=== PATIENT | male | born 1960 | race Caucasian/White ===

== ENCOUNTER 2019-02-17 04:40 | Emergency (ER) | payer OTHER, SELFPAY ==
[2019-02-17 04:41] VITALS: BP 182/92; PULSE 80; RESP 16; TEMP 36.6; O2SAT 98; BMI 28.6
--- NOTE | 2019-02-17 04:41 | ED.RN ---
no old ekgs in [facility]
--- NOTE | 2019-02-17 05:02 | EKG12_ITS ---
Test Reason : CP Blood Pressure : / mmHG Vent. Rate : 081 BPM Atrial Rate : 081 BPM P-R Int : 186 ms QRS Dur : 086 ms QT Int : 374 ms P-R-T Axes : 064 041 064 degrees QTc Int : 434 ms Normal sinus rhythm Normal ECG Confirmed by KRISTINA WILSON, MARIA L ([id number]), development editor JIGAR DE ([id number]) on 02/23/2019 1:07:23 PM Referred By: CAROL Confirmed By:MARIA L ACEVEDO MD
--- NOTE | 2019-02-17 05:03 | RAD_ITS ---
STUDY: X-RAY CHEST REASON FOR EXAM: Male, 58 years old. Chest pain TECHNIQUE: PA and lateral views of the chest. COMPARISON: None. FINDINGS: There are superimposed monitor leads. There is hyperinflation of the lungs consistent with chronic obstructive lung disease (COPD). Calcified granuloma in the right base. There is no demonstrated pleural abnormality. Normal size heart. Normal mediastinum and gordon. Normal visualized pulmonary arteries. Normal visualized aortic arch and descending thoracic aorta. There is demineralization of the osseous structures. Normal visualized ribs, clavicles, and shoulders. There is no demonstrated abnormality of the visualized soft tissue structures of the upper abdomen. RAD/Chest PA and Lateral IMPRESSION: COPD, probable remote granulomatous exposure, osteopenia. No pulmonary edema, congestive heart failure or confluent pneumonia. Electronically Signed: Shannon Guillen MD at 6:05 EDT , Service support ,
--- NOTE | 2019-02-17 05:03 | ED.VIS.GEN ---
History of Present Illness Chief Complaint: Chest Pain Informant: Patient Narrative: Stated over the last 3 days he has had continuous chest aching substernal. It waxes and wanes. Is not movement related. It seems to be better in the morning when he wakes up in the slowly progresses throughout the day. No home treatment for it. No history of coronary artery disease. No previous stress test or heart cath. Cardiac risk factors include a remote history of smoking. He no longer does this over the last 10 years but he smoked for 30 years. History of hypertension high cholesterol. No family history of early coronary artery disease. No PE risk factors other than he does drive a truck for living. He is never had any leg pain or swelling per patient. Patient came in tonight at the urge of his friend to get checked out. Current severity is resolved. He has no discomfort currently. He did have discomfort this morning when he woke up that persisted from the previous day. He stated he had a normal physical exam 2 weeks ago. Past Medical History - Allergies and Home Meds Allergies/Adverse Reactions: Allergies No Known Allergies Allergy (Verified 02/17/19 04:41) Primary Care Physician: [facility] Doctor,Out of [NON-STAFF] - Prior records reviewed: Yes Past Medical History: - - Cholesterol, hypertension Surgical History: no surgical history Smoking Status: Former smoker Alcohol: Occasional Drugs: None Review of Systems General: Denies: Chills, Fever, Sweats Eyes: Denies: Visual changes - bilaterally, Diplopia ENT: Denies: Rhinorrhea, Sore throat Cardiovascular: Reports: Chest pain. Denies: Palpitations Respiratory: Denies: Dyspnea, Cough, Dyspnea on exertion Gastrointestinal: Denies: Abdominal pain, Nausea, Vomiting, Diarrhea, Melena, Hematochezia Genitourinary: Denies: Dysuria, Hematuria, Frequency Musculoskeletal: Denies: Back pain, Extremity Pain Skin: Denies: Rash, Wounds Neurological: Denies: Headache, Weakness, Numbness Physical Exam Vital Signs/Narrative: Vital Signs Temp Pulse Resp BP Pulse Ox 02/17/19 04:41 97.9 F 80 16 182/92 H 98 General: Well nourished, Well developed, No Acute Distress Head: Normocephalic, Atraumatic Eyes: Perrl, EOMI ENT: Moist mucous membranes, No rhinorrhea Neck: Supple, Nontender Cardiovascular: Regular rate, Regular rhythm, No murmurs Respiratory: No distress, CTA bilaterally, Chest nontender Abdomen: Soft, Nontender, Nondistended, Normal bowel sounds Back: Nontender, Normal Inspection Extremities: Nontender, No edema Skin: Normal color, No rash Neurological: Alert, Oriented x3, Cranial nerves II-XII grossly intact, Normal Strength, Normal Sensation Psychological: Normal affect, Normal Mood Diagnostic/Tx/Re-eval - Medical Decision Making EKG obtained shows normal sinus rhythm at a rate 81. No ischemic findings. Patient given a dose of aspirin orally. Lab work chest x-ray obtained. X-ray shows COPD findings with no acute disease lab work unremarkable. Troponin is negative. CBC shows no major acute abnormalities. Electrolyte panel shows no major abnormalities. only slight abnormalities noted. Patient remains comfortable here. I do not think this is cardiac related. His heart score is low risk in a number of 3. I do not feel he needs to be admitted. I feel he can follow-up as an outpatient. This could be costochondritis. No evidence of pneumothorax. I do not think he has a PE or dissection. I feel he can follow-up as an outpatient continue to take anti-inflammatories.. ED Disposition - Plan for ED Patient: Disposition: Home or Assisted Living Diagnosis: Chest pain at rest Instructions: CHEST PAIN, NonCardiac Referrals: [facility],Out of [NON-STAFF] -
[2019-02-17 05:11] LABS: Absolute Lymphocyte Count 1.38 X10^3/uL (0.83-4.51); Absolute Neutrophil Count 2.8 X10^3/uL (2.0-7.7); Basophil# 0.03 X10^3/uL; Basophil% 0.6 % (0-1); Eosinophil# 0.37 X10^3/uL; Eosinophils% 7.2 % (0-5); Hematocrit 43.3 % (40-54); Hemoglobin 14.6 g/dL (13.0-16.5); Lymphocyte # 1.38 X10^3/ul (4.0); Lymphocyte % 26.7 % (19-41); Mean Corp Hgb Conc 33.7 g/dL (32-36); Mean Corpuscular Hgb 30.5 pg (27.0-32.0); Mean Corpuscular Volume 90.4 fL (80-94); Mean Platelet Vol. 9.7 fl (6.2-12.0); Monocyte# 0.59 X10^3/uL; Monocyte% 11.4 % (0-10); NRBC Flagged by Analyzer 0 % (0-5); Neutrophil # 2.79 X10^3/uL (2.7-7.7); Neutrophil % 53.9 % (47-70); Platelet Count 245 K/mm3 (150-450); RBC Distribution Width CV 13.2 % (11.6-14.6); RBC Distribution Width SD 44.3 fl (35.1-43.9); Red Blood Count 4.79 M/mm3 (4.6-6.2); White Blood Count 5.2 K/mm3 (4.4-11.0)
[2019-02-17] MEDS: Aspirin 81 MG TAB.CHEW 324 MG PO (05:13)
[2019-02-17 05:37] LABS: Anion Gap 4 (5-15); BUN 20 mg/dL (7-18); Calcium,Total 8.7 mg/dL (8.5-10.1); Chloride 110 mmol/L (98-107); Creatinine, Serum 1.25 mg/dL (0.70-1.30); EST Glomerular Filtration Rate 63 mL/min (>60); Est Glom Filt Rate - Afr Amer 76 mL/min (>60); Estimated Creatinine Clearance 64.42 ml/min; Glucose 110 mg/dL (74-106); Potassium 4.2 mmol/L (3.5-5.1); Sodium Level 143 mmol/L (136-145)
[2019-02-17 05:40] VITALS: BP 149/95; PULSE 56; RESP 12; O2SAT 97
[2019-02-17 06:16] VITALS: BP 149/95; PULSE 62; RESP 12; O2SAT 99
== END 2019-02-17 06:17 | disposition home or self-care (01) ==
PROVIDERS: Emergency Provider Emergency Medicine; Family Provider Internal Medicine; PCP Internal Medicine
DX: R07.9 Chest pain, unspecified (principal); E78.00 Pure hypercholesterolemia, unspecified; I10 Essential (primary) hypertension; Z87.891 Personal history of nicotine dependence; Z79.899 Other long term (current) drug therapy
CPT/HCPCS: 71046; 80048; 84484; 85025; 93005; 99285; A4216

== ENCOUNTER 2020-12-20 16:57 | Observation (INO) | payer BC, SELFPAY ==
[2020-12-20 16:58] VITALS: BP 121/91; PULSE 113; RESP 14; TEMP 36.4; O2SAT 95; BMI 27.8
[2020-12-20 18:03] LABS: Absolute Lymphocyte Count 1.15 X10^3/uL (0.83-4.51); Absolute Neutrophil Count 7.3 X10^3/uL (2.0-7.7); Anion Gap 7 (5-15); BUN 25 mg/dL (7-18); BUN/Creat Ratio 11.5 RATIO (10-20); Basophil# 0.02 X10^3/uL; Basophil% 0.2 % (0-1); Calcium,Total 9.2 mg/dL (8.5-10.1); Chloride 103 mmol/L (98-107); Creatinine, Serum 2.18 mg/dL (0.70-1.30); EST Glomerular Filtration Rate 33 mL/min (>60); Eosinophil# 0.15 X10^3/uL; Eosinophils% 1.5 % (0-5); Est Glom Filt Rate - Afr Amer 40 mL/min (>60); Estimated Creatinine Clearance 37.21 ml/min; Glucose 96 mg/dL (74-106); Hematocrit 42.5 % (40-54); Hemoglobin 13.9 g/dL (13.0-16.5); Lymphocyte # 1.15 X10^3/ul (0.83-4.51); Lymphocyte % 11.6 % (19-41); Mean Corp Hgb Conc 32.7 g/dL (32-36); Mean Corpuscular Hgb 29.6 pg (27.0-32.0); Mean Corpuscular Volume 90.4 fL (80-94); Mean Platelet Vol. 10.1 fl (6.2-12.0); Monocyte# 1.21 X10^3/uL; Monocyte% 12.2 % (0-10); NRBC Flagged by Analyzer 0 % (0-5); Neutrophil # 7.32 X10^3/uL (2.7-7.7); Neutrophil % 74.1 % (47-70); Platelet Count 323 K/mm3 (150-450); Potassium 3.7 mmol/L (3.5-5.1); RBC Distribution Width CV 13.3 % (11.6-14.6); RBC Distribution Width SD 44.2 fl (35.1-43.9); Sodium Level 136 mmol/L (136-145); White Blood Count 9.9 K/mm3 (4.4-11.0)
--- NOTE | 2020-12-20 18:23 | NURSING ---
FAXED RELEASE OF INFO TO [facility] [phone]
[2020-12-20 19:29] LABS: Bacteria 0 SEEN /hpf (None Seen); Mucous, Urine 0 SEEN /hpf (<or=2+); White Blood Cells 0 SEEN /hpf (0-5)
[2020-12-20 19:31] LABS: Color, Urine Yellow (Yellow); Glucose, Dipstick Normal (Normal); Ketone-Dipstick 15 mg/dl (Negative); Leukocyte Esterase-Dipstick Negative /ul (Negative); Nitrite-Dipstick Negative (Negative); Occult Blood-Urine 25 /ul (Negative); Protein-Dipstick Negative (Negative); Specific Gravity, Urine 1.015 (1.002-1.030); Urine Bilirubin Dipstick Negative (Negative); Urine Clarity Sl. Cloudy (Clear); Urine Urobilinogen Normal (Normal)
[2020-12-20 19:50] LABS: Red Blood Cells-Urine 0-5 SEEN /hpf (0-5); Squamous Epithelial Cells - UA 0-5 SEEN /hpf (0-5)
--- NOTE | 2020-12-20 20:17 | CT_ITS ---
STUDY: CT ABDOMEN AND PELVIS WITHOUT CONTRAST REASON FOR EXAM: Male, 60 years old. Kidney Stone RADIATION DOSAGE (If Supplied By Facility): CTDIvol = ( 8.57 ) mGy, DLP = ( 449.48 ) mGycm TECHNIQUE: Transaxial images were obtained from the dome of the diaphragm to the symphysis pubis without oral contrast, and without intravenous contrast. Sagittal and coronal images were reconstructed. Individualized dose optimization techniques were used for this CT. COMPARISON: None. FINDINGS: Calcified granuloma in the right lower lobe. Heart size is normal. 0.9 cm low-attenuation lesion in the dome of the liver, too small to characterize. The liver is otherwise unremarkable. The gallbladder is unremarkable. Spleen and pancreas are unremarkable. The adrenal glands are normal. Normal right kidney. Mild left hydronephrosis. No renal calculi. 4.4 cm low-attenuation lesion in the upper pole not characterized without contrast. 5 x 3 x 5 mm stone in the left proximal ureter. Distal ureter is normal in course and caliber. No additional ureteral stones. The aorta is normal in caliber. There is no free fluid, free air or organized collection. No bowel obstruction or inflammatory change. Normal appendix. Urinary bladder is unremarkable. Normal abdominal wall. Normal osseous structures. CT/Abdomen/Pelvis without Cont IMPRESSION: 1. Stone in the left proximal ureter with mild proximal hydronephrosis. 2. Left renal hypodensity not characterized without contrast. 3. Hepatic hypodensity too small to characterize. Electronically Signed: Aileen Mishra MD at 20:44 EDT Tel , Service support ,
--- NOTE | 2020-12-20 20:18 | EX.ED.DYSGE1 ---
HPI History of Present Illness Chief Complaint: Flank Pain Informant: patient Onset/Context/Timing Onset: Days Context: Sudden Onset Timing: Intermittent Quality: Pain left flank left side of abdomen that started suddenly and is crampy Location: Left side Current Severity: Gone Maximum Severity: Severe Worsened by: Presumed ureteral stone with obstruction Relieved by: P.o. Toradol Associated Symptoms Associated Symptoms: No other symptoms other than pain Narrative Narrative: Patient is a 60-year-old male with history of hypertension hypercholesterolemia who was seen at [facility] emergency department located in [place]. Attempts to obtain prior records were unsuccessful. We were informed at 2014 that there was no one available to retrieve those records. Since patient has evidence of acute elevated augustin of his creatinine and there is concern for obstruction will obtain a CT of the abdomen and pelvis without contrast. Patient was made aware of the delay and reason for repeat CAT scan. Patient denies fever, chills night sweats. He does report nausea when the pain is severe. He denies vomiting. He denies diarrhea. He denies dysuria, frequency, urgency or hematuria. Patient states he was told the stone is 5 mm in size. He believes the stone is located in his kidney. Prior similar symptoms: Yes Recent Illness/Hospitalization: Yes [facility] Medical History High cholesterol Hypertension Home Medications losartan 25 mg PO DAILY 02/17/19 [History Last Taken Unknown] simvastatin 10 mg PO DAILY 02/17/19 [History Last Taken Unknown] Allergy/AdvReac Type Severity Reaction Status Date / Time No Known Allergies Allergy Verified 12/20/20 16:58 Social History (Updated 12/20/20 @ 20:[address] Johnny Rosario MD) household members: family housing: house Smoking Status: Former smoker alcohol intake: current alcohol intake frequency: holidays/special occasions only substance use type: does not use ROS ROS ED Constitutional Constitutional ED: Denies chills, fever(s), subjective or sweats Eyes Eyes: Denies blurry vision, change in vision or diplopia ENT ENT ED: Denies ear pain, rhinorrhea or sore throat Cardiovascular Cardiovascular: Denies chest pain, palpitations or racing heartbeat Respiratory/Chest Respiratory/Chest: Denies cough, dyspnea or dyspnea on exertion Gastrointestinal Gastrointestinal: Reports abdominal pain and nausea; Denies constipation, diarrhea or vomiting Genitourinary Genitourinary ED: Denies dysuria, hematuria or urinary frequency Musculoskeletal Musculoskeletal: Reports back pain; Denies arthralgias, myalgias or neck pain Integumentary Denies Abrasions or rash Endocrine Endocrinology: Denies polydipsia, polyphagia or polyuria EXAM Physical Exam Const Vital Signs: 12/20/20 16:58 Temperature 97.5 F L Temperature Source Temporal Pulse Rate 113 H Respiratory Rate 14 Blood Pressure 121/91 H Blood Pressure Mean 101 Pulse Ox 95 Oxygen Delivery Method Room Air Positive well nourished and well developed General Appearance ED: well developed and NAD HEENT Reports moist mucous membranes HEENT Narrative: Nares patent. Ears normal. No facial asymmetry. Eyes PERRL and EOMs intact bilaterally General Eye ED: Negative for pale conjunctiva or scleral icterus Neck no lymphadenopathy, supple and no JVD Chest Wall inspection of chest normal Resp normal respiratory effort and clear to auscultation bilaterally Cardio regular rate, regular rhythm, S1 normal heart sound, S2 normal heart sound and no murmurs GI non-distended Inspection: Negative for abdominal distention Auscultation: normoactive bowel sounds Palpation: soft and tender other (Over the left kidney area.); Negative for guarding or rebound tenderness present Back/Spine General Back: CVA tenderness Cervical Spine: Negative for cervical spine tenderness Thoracic Spine / Upper Back: Negative for thoracic spinal tenderness or paraspinal muscle tenderness Extremity normal to inspection General Extremety ED: Yes tenderness Neuro oriented x3, CN's II-XII intact bilaterally and no sensory deficits noted Sensorium / Orientation: alert Motor Exam: strength 5/5 throughout Psych mental status grossly normal Skin no rashes or lesions noted and no wounds MDM MDM MDM Narrative Medical decision making narrative: Patient states the medicine he took prior to arrival has alleviated his pain. He presents here because he is having recurrent pain since Wednesday. Attempt to obtain records from outside facility were unsuccessful. Blood work was obtained here reveals evidence of an elevated creatinine of 2.18. Prior creatinine was 1.27. White count and differential are normal. Urine is unremarkable. Because patient has flank pain with acute elevation of his creatinine will obtain CT of the abdomen pelvis to evaluate location of stone. If there is evidence of obstruction will contact urology since he will need a stent placed. Case was discussed with urology, Dr. Plasencia. He believes the elevated creatinine is due to combination of hydronephrosis and the NSAID patient was prescribed. He will see patient on Wednesday since he is pain-free at this time. He recommended increased fluid intake. Discontinuation of the pain medicines prescribed from outside facility. Lab Data Attestation: I reviewed the patient's lab results. Lab results narrative: Patient's creatinine is elevated from baseline and is 2.18. CT reveals a renal calculi measuring 5 mm and a proximal ureteral calculi resulting in obstruction that is 4.4 mm in size. Because of the intermittent severe pain and more importantly the marked elevation of his creatinine will discuss case with urology. Labs: Laboratory Results - last 24 hr 12/20/20 12/20/20 12/20/20 17:20 17:20 19:12 WBC 9.9 RBC 4.70 Hgb 13.9 Hct 42.5 MCV 90.4 MCH 29.6 MCHC 32.7 RDW Std Deviation 44.2 H RDW Coeff of Ger 13.3 Plt Count 323 MPV 10.1 Immature Gran % (Auto) 0.400 Neut % (Auto) 74.1 H Lymph % (Auto) 11.6 L [place] % (Auto) 12.2 H Eos % (Auto) 1.5 Baso % (Auto) 0.2 Absolute Neuts (auto) 7.3 Absolute Lymphs (auto) 1.15 Nucleated RBC % 0 Sodium 136 Potassium 3.7 Chloride 103 Carbon Dioxide 26.0 Anion Gap 7 BUN 25 H Creatinine 2.18 H Estim Creat Clear Calc 37.21 Est GFR (MDRD) Af Amer 40 L Est GFR (MDRD) Non-Af 33 L BUN/Creatinine Ratio 11.5 Glucose 96 Calcium 9.2 Urine Color Yellow Urine Clarity Sl. Cloudy Urine pH 5.0 Ur Specific [place] 1.015 Urine Protein Negative Urine Glucose (UA) Normal Urine Ketones 15 H Urine Occult Blood 25 H Urine Nitrite Negative Urine Bilirubin Negative Urine Urobilinogen Normal Ur Leukocyte Esterase Negative Urine RBC 0-5 SEEN Urine WBC 0 SEEN Ur Squamous Epith Cells 0-5 SEEN Urine Bacteria 0 SEEN Urine Mucus 0 SEEN Radiography Diagnostic Testing: Radiology Impression Abdomen/Pelvis CT 12/20/20 20:17 IMPRESSION: 1. Stone in the left proximal ureter with mild proximal hydronephrosis. 2. Left renal hypodensity not characterized without contrast. 3. Hepatic hypodensity too small to characterize. Electronically Signed: Aileen Mishra MD at 20:44 EDT Tel , Service support , Discharge Plan Triage Chief Complaint: Flank Pain ED Provider: Johnny Rosario Dx/Rx/DC Orders Clinical Impression: Hydronephrosis concurrent with and due to calculi of kidney and ureter, Acute kidney insufficiency, History of chronic hypertension Instructions: ED Renal Insufficiency, ED Kidney Stone w/ Colic Prescriptions: No Action simvastatin 10 MG tablet 10 mg PO DAILY RF: 0 losartan 25 MG tablet 25 mg PO DAILY RF: 0 Primary Care Provider: Prudence Davies Referrals: Prudence Davies MD [Primary Care Provider] - Disposition Disposition: Acute Care [facility]
[2020-12-20] MEDS: HYDROmorphone 0.5 MG/0.5 ML SYRINGE IV (21:17)
[2020-12-20] MEDS: Ondansetron 4 MG/2 ML Vial IV (21:17)
[2020-12-20 21:21] VITALS: BP 144/89; PULSE 86; RESP 15; RESP 16; TEMP 37.3; O2SAT 95
--- NOTE | 2020-12-20 21:26 | PCM.HP.STD ---
HPI - General HPI Narrative GAUDENCIO MONTESINOS, is a 60 M who presents with obstructing left ureteral calculi and scute renal indufficiency, admit for manegment [facility] Medical History High cholesterol Hypertension Home Medications amlodipine 10 mg PO DAILY 12/20/20 [History Last Taken Unknown] atorvastatin 20 mg PO DAILY 12/20/20 [History Last Taken Unknown] ketorolac 10 mg PO Q6H PRN 12/20/20 [History Last Taken Unknown] losartan 100 mg PO DAILY 12/20/20 [History Last Taken Unknown] ondansetron [Zofran ODT] 4 mg PO Q8H PRN 12/20/20 [History Last Taken Unknown] tamsulosin 0.4 mg PO DAILY 12/20/20 [History Last Taken Unknown] Allergy/AdvReac Type Severity Reaction Status Date / Time No Known Allergies Allergy Verified 12/20/20 16:58 Social History (Updated 12/20/20 @ 20:[address] Johnny Rosario MD) household members: family housing: house Smoking Status: Former smoker alcohol intake: current alcohol intake frequency: holidays/special occasions only substance use type: does not use ROS Constitutional Constitutional: Denies chills, fever(s) or malaise Eyes Eyes: Denies blurry vision or change in vision ENT HEENT: Reports none Cardiovascular Cardiovascular: Denies chest pain or palpitations Respiratory/Chest Respiratory/Chest: Denies cough or shortness of breath with exertion Gastrointestinal Gastrointestinal: Denies constipation or diarrhea Genitourinary Genitourinary: Reports systems reviewed and no addt'l complaints, except as documented Musculoskeletal Musculoskeletal: Denies back pain, joint stiffness or joint swelling Integumentary Integumentary: Denies dry skin, jaundice, lesions or rash Neurologic Neurologic: Denies confusion, syncope or weakness Psychiatric Psychiatric: Reports none; Denies anxiety or depression Endocrine Endocrinology: Denies excessive sweating, fatigue or flushing Hematologic/Lymphatic Hematologic/Lymphatic: Denies anemia, easy bleeding or easy bruising Vital Signs Vital Signs Vital Signs: 12/20/20 16:58 12/20/20 21:21 Temperature 97.5 F L 99.1 F Temperature Source Temporal Temporal Pulse Rate 113 H 86 Respiratory Rate 14 15 Blood Pressure 121/91 H 144/89 H Blood Pressure Mean 101 107 Pulse Ox 95 95 Oxygen Delivery Method Room Air Room Air Weight Weight: 88 kg Body Mass Index (BMI) 27.8 Physical Exam Const alert and oriented x3 General Appearance: cooperative HEENT normocephalic, head/scalp atraumatic, EAC's normal and TM's normal bilaterally Eyes PERRL and EOMs intact bilaterally Pupil: sluggish Neck no lymphadenopathy, supple and no JVD General: trachea midline Lymph Lymphatic: no lymphadenopathy noted, lymphedema and lymphadenopathy Resp normal respiratory effort, normal air movement and clear to auscultation bilaterally Cardio regular rate, regular rhythm and peripheral pulses 2+ throughout GI soft to palpation, non-tender and non-distended Extremity normal capillary refill and no clubbing, cyanosis or edema General Extremity: no tenderness to palpation of joints or extremities Skin no rashes or lesions noted General Skin Exam: turgor normal Lesions: no lesions Rashes: no rashes Neuro CN's II-XII intact bilaterally Speech: speech normal Motor Exam: strength 5/5 throughout; Negative for general weakness Psych thought process normal, cooperative and affect normal Appearance: appropriate Results Lab / Micro Data Result Diagrams: 12/20/20 17:20 12/20/20 17:20 Labs: Laboratory Results - last 24 hr 12/20/20 12/20/20 12/20/20 17:20 17:20 19:12 WBC 9.9 RBC 4.70 Hgb 13.9 Hct 42.5 MCV 90.4 MCH 29.6 MCHC 32.7 RDW Std Deviation 44.2 H RDW Coeff of Ger 13.3 Plt Count 323 MPV 10.1 Immature Gran % (Auto) 0.400 Neut % (Auto) 74.1 H Lymph % (Auto) 11.6 L [place] % (Auto) 12.2 H Eos % (Auto) 1.5 Baso % (Auto) 0.2 Absolute Neuts (auto) 7.3 Absolute Lymphs (auto) 1.15 Nucleated RBC % 0 Sodium 136 Potassium 3.7 Chloride 103 Carbon Dioxide 26.0 Anion Gap 7 BUN 25 H Creatinine 2.18 H Estim Creat Clear Calc 37.21 Est GFR (MDRD) Af Amer 40 L Est GFR (MDRD) Non-Af 33 L BUN/Creatinine Ratio 11.5 Glucose 96 Calcium 9.2 Urine Color Yellow Urine Clarity Sl. Cloudy Urine pH 5.0 Ur Specific [place] 1.015 Urine Protein Negative Urine Glucose (UA) Normal Urine Ketones 15 H Urine Occult Blood 25 H Urine Nitrite Negative Urine Bilirubin Negative Urine Urobilinogen Normal Ur Leukocyte Esterase Negative Urine RBC 0-5 SEEN Urine WBC 0 SEEN Ur Squamous Epith Cells 0-5 SEEN Urine Bacteria 0 SEEN Urine Mucus 0 SEEN Radiology Impression Abdomen/Pelvis CT 12/20/20 20:17 IMPRESSION: 1. Stone in the left proximal ureter with mild proximal hydronephrosis. 2. Left renal hypodensity not characterized without contrast. 3. Hepatic hypodensity too small to characterize. Electronically Signed: Aileen Mishra MD at 20:44 EDT Tel , Service support , Assessment & Plan Assessment/Plan (1) Hydronephrosis concurrent with and due to calculi of kidney and ureter: PLAN: left uretersl calculi, cysto stent placement in am then zafar gor lithotripsy (2) Acute kidney insufficiency: PLAN: need stent fir obstruction, hold nsaids (3) History of chronic hypertension: PLAN: resume bp meds
[2020-12-20 23:11] VITALS: BMI 27.9
[2020-12-20 23:12] VITALS: BP 138/74; PULSE 78; RESP 18; TEMP 36.8; O2SAT 97
[2020-12-20] MEDS: Ciprofloxacin 400 MG/200 ML BAG 200 MG IV (23:40)
[2020-12-21] VITALS (7 sets, daily range): BP systolic 96–130; BP diastolic 66–74; PULSE 84–101; RESP 16–18; TEMP 36.3–37; O2SAT 94–98; BMI 27.9
--- NOTE | 2020-12-21 07:33 | PN.URO_ITS ---
Subjective Subjective 60-year-old male presented to the hospital with kidney stone acute renal insufficiency worsening creatinine he has obstructing stone in the left side was admitted for further management. Objective Data Objective Data Vital Signs: Vital Signs Temp Pulse Resp BP Pulse Ox 98.6 F 89 18 130/72 H 96 12/21/20 06:13 12/21/20 06:13 12/21/20 06:13 12/21/20 06:13 12/21/20 06:13 Oxygen Delivery Method Room Air Weight: 88.451 kg Body Mass Index (BMI) 27.9 Intake & Output: Intake and Output for Last 24 Hours 12/19/20 12/20/20 12/21/20 23:59 23:59 23:59 Intake Total 0 / 0 200 / 200 Output Total 200 / 200 400 / 400 Balance -200 / -200 -200 / -200 Lab / Micro Data Result Diagrams: 12/20/20 17:20 12/20/20 17:20 Labs: Laboratory Results - last 24 hr 12/20/20 12/20/20 12/20/20 17:20 17:20 19:12 WBC 9.9 RBC 4.70 Hgb 13.9 Hct 42.5 MCV 90.4 MCH 29.6 MCHC 32.7 RDW Std Deviation 44.2 H RDW Coeff of Ger 13.3 Plt Count 323 MPV 10.1 Immature Gran % (Auto) 0.400 Neut % (Auto) 74.1 H Lymph % (Auto) 11.6 L [place] % (Auto) 12.2 H Eos % (Auto) 1.5 Baso % (Auto) 0.2 Absolute Neuts (auto) 7.3 Absolute Lymphs (auto) 1.15 Nucleated RBC % 0 Sodium 136 Potassium 3.7 Chloride 103 Carbon Dioxide 26.0 Anion Gap 7 BUN 25 H Creatinine 2.18 H Estim Creat Clear Calc 37.21 Est GFR (MDRD) Af Amer 40 L Est GFR (MDRD) Non-Af 33 L BUN/Creatinine Ratio 11.5 Glucose 96 Calcium 9.2 Urine Color Yellow Urine Clarity Sl. Cloudy Urine pH 5.0 Ur Specific [place] 1.015 Urine Protein Negative Urine Glucose (UA) Normal Urine Ketones 15 H Urine Occult Blood 25 H Urine Nitrite Negative Urine Bilirubin Negative Urine Urobilinogen Normal Ur Leukocyte Esterase Negative Urine RBC 0-5 SEEN Urine WBC 0 SEEN Ur Squamous Epith Cells 0-5 SEEN Urine Bacteria 0 SEEN Urine Mucus 0 SEEN Micro: Microbiology 12/20/20 22:25 Mucosa - Nose SARS-CoV-2 Antigen (Rapid) - Final Radiography Diagnostic Testing: Radiology Impression Abdomen/Pelvis CT 12/20/20 20:17 IMPRESSION: 1. Stone in the left proximal ureter with mild proximal hydronephrosis. 2. Left renal hypodensity not characterized without contrast. 3. Hepatic hypodensity too small to characterize. Electronically Signed: Aileen Mishra MD at 20:44 EDT Tel , Service support , Physical Exam Const alert and oriented x3 General Appearance: cooperative HEENT normocephalic, head/scalp atraumatic, EAC's normal and TM's normal bilaterally Eyes PERRL and EOMs intact bilaterally Pupil: sluggish Neck no lymphadenopathy, supple and no JVD General: trachea midline Lymph Lymphatic: no lymphadenopathy noted, lymphedema and lymphadenopathy Resp normal respiratory effort, normal air movement and clear to auscultation bilaterally Cardio regular rate, regular rhythm and peripheral pulses 2+ throughout GI soft to palpation, non-tender and non-distended Extremity normal capillary refill and no clubbing, cyanosis or edema General Extremity: no tenderness to palpation of joints or extremities Skin no rashes or lesions noted General Skin Exam: turgor normal Lesions: no lesions Rashes: no rashes Neuro CN's II-XII intact bilaterally Speech: speech normal Motor Exam: strength 5/5 throughout; Negative for general weakness Psych thought process normal, cooperative and affect normal Appearance: appropriate Assessment & Plan Assessment/Plan (1) Left ureteral calculus: PLAN: Plan to take the surgery today for cystoscopy and stent placement and then want to set him up for shockwave lithotripsy will be discharged home today after the procedure.
--- NOTE | 2020-12-21 07:38 | PCM.DC ---
Discharge Instructions Diet Discharge Diet: No restrictions Activity Discharge Activity: Return to Normal Activity and May Not Drive (while taking narcotic pain medications.) Dressing / Incision Call your doctor if you observe: Fever of 101 or Higher Follow Up Care Please Follow Up With: Trav Nguyen MD When: Call [phone] for an appointment Test Results: Test results from this visit will be discussed in further detail at your follow-up appointment, if applicable. Discharge Plan Admission Admit Date/Time: 12/20/20 21:23 Primary Reason for Your Visit: Left kidney stone Attending Provider: Trav Nguyen Primary Care Provider: Prudence Davies Instructions Patient Instructions: ED Renal Insufficiency, ED Kidney Stone w/ Colic Discharge Orders/Prescriptions Prescriptions: New ciprofloxacin HCl [Cipro] 500 mg tablet 500 mg PO BID Qty: 6 RF: 0 oxycodone-acetaminophen 5-325 mg tablet 1 tab PO Q4H PRN (Reason: pain) 7 Days Qty: 14 RF: 0 Continued atorvastatin 20 mg tablet 20 mg PO DAILY RF: 0 tamsulosin 0.4 mg Capsule 0.4 mg PO DAILY RF: 0 amlodipine 10 mg tablet 10 mg PO DAILY RF: 0 losartan 100 mg tablet 100 mg PO DAILY RF: 0 Discontinued ketorolac 10 mg Tablet 10 mg PO Q6H PRN (Reason: Pain) RF: 0 Referrals / Follow Up: Trav Nguyen MD [STAFF PHYSICIAN] - Prudence Davies MD [Primary Care Provider] - Disposition Discharge Orders: Discharge Patient (Routine); Ordered 12/21/20 Ordered By: Dr. Trav Nguyen
[2020-12-21] MEDS: Lidocaine Jelly 2% 20 ML Syringe (URO-JET) 20 APPLIC (07:44)
--- NOTE | 2020-12-21 07:50 | OP.PCM_ITS ---
Report of Operation Date of Procedure: 12/21/20 Pre-Operative Diagnosis: Left obstructing ureteral calculi, acute renal insuffi ciency Post-Operative Diagnosis: Same Surgery/Procedure Performed:: Cystoscopy left stent placement Description of Surgical Findings:: Patient was taken back to the operating room after induction of general anesthesia, the patient was placed in dorsolithotomy position. The urethra and genitals were prepped and draped in usual sterile fashion. Using a 21 Tristanian rigid cystourethroscope the entire length of the urethra was normal then went into the bladder. Identified the trigone the left and right ureteral orifice. I then cannulated the left orifice and advanced a wire up into the kidney. I then backloaded a 5 Tristanian open ended catheter over the wire and injected contrast to delineate the anatomy. After the retrograde was performed I then used fluoroscopic images and guidance to advanced a wire up into the kidney and over the 0.038 glidewire I advanced a 6 Tristanian by 26 cm double pigtail stent. I then pulled the 0.038 Glidewire off and the stent coiled in the kidney bladder good position. The bladder was then drained. We confirmed the position of the stent by fluoroscopy. Patient anesthetic was reversed and was taken back to the PACU in good condition. Surgeon: Trav Nguyen Type of Anesthesia: MAC Admit VTE Documentation VTE Present on Admission: No VTE Mechan Device Prophylaxis: SCD's
--- NOTE | 2020-12-21 08:06 | NURSING ---
pt in surgery
[2020-12-21] MEDS: amLODIPine 10 MG Tablet PO (09:39)
[2020-12-21] MEDS: Losartan Potassium 100 MG Tablet PO (09:39)
[2020-12-21] MEDS: Ciprofloxacin 400 MG/200 ML BAG 200 MG IV (09:39)
== END 2020-12-21 11:07 | disposition home or self-care (01) ==
LOC: ED 21:01 → MS3 22:10
PROVIDERS: Admitting Provider Urology; Emergency Provider Emergency Medicine; PCP Internal Medicine; Visit Provider Urology
PROC: (CPT 52332; principal; 2020-12-21 07:30)
DX: N13.2 Hydronephrosis with renal and ureteral calculous obstruction (principal); I10 Essential (primary) hypertension; E78.00 Pure hypercholesterolemia, unspecified; Z79.899 Other long term (current) drug therapy; Z87.891 Personal history of nicotine dependence
CPT/HCPCS: 52332; 74176; 76000; 80048; 81001; 85025; 87426; 96365; 96366; 96375; 99218; 99284; J7050; A4216; C1769; C2617; G0378; J0744; J2405

== ENCOUNTER → 2020-12-25 15:55 | Outpatient (CLI) | payer BC, SELFPAY ==
[2020-12-21 06:13] VITALS: BMI 27.9
--- NOTE | 2020-12-25 16:00 | EKG12_ITS ---
Test Reason : PRE-OP Blood Pressure : / mmHG Vent. Rate : 076 BPM Atrial Rate : 076 BPM P-R Int : 192 ms QRS Dur : 084 ms QT Int : 366 ms P-R-T Axes : 042 011 017 degrees QTc Int : 411 ms Normal sinus rhythm Normal ECG Confirmed by KRISTINA WILSON, MARIA L ([id number]), editor book JIGAR DE ([id number]) on 12/26/2020 12:39:22 PM Referred By: Trav Nguyen Confirmed By:MARIA L ACEVEDO MD
[2020-12-25 17:39] LABS: Probe Check PASS; Specimen Processing Control PASS
== END ==
PROVIDERS: PCP Internal Medicine; Referring Provider Urology; Visit Provider Urology
DX: Z01.812 Encounter for preprocedural laboratory examination (principal); I10 Essential (primary) hypertension
CPT/HCPCS: 87635; 93005; C9803; U0005; U0003

== ENCOUNTER → 2021-01-27 15:02 | Outpatient (CLI) | payer BC, SELFPAY ==
[2020-12-21 06:13] VITALS: BMI 27.9
--- NOTE | 2021-01-27 15:10 | RAD_ITS ---
STUDY: X-RAY - ABDOMEN/PELVIS REASON FOR EXAM: Male, 60 years old. CALCULUS OF URETER TECHNIQUE: Single AP view of the abdomen / pelvis. COMPARISON: None. FINDINGS: Normal visualized lung bases. There is an unremarkable bowel gas pattern. There is a 2.2 mm calcification in the left hemipelvis most likely representing a distal left ureteral calculus. Normal soft tissue structures. Osteoarthritis of both hip joints. There are degenerative changes of the visualized lumbar spine. RAD/Abdomen Single View IMPRESSION: 2.2 mm calcification in the left hemipelvis most likely representing a small distal left ureteral calculus. Electronically Signed: August Wakefield MD at 9:49 EDT , Service support ,
== END ==
PROVIDERS: PCP Internal Medicine; Referring Provider Urology; Visit Provider Urology
DX: N20.1 Calculus of ureter (principal)
CPT/HCPCS: 74018

== ENCOUNTER 2021-01-30 11:48 | Day surgery (SDC) | payer BC, SELFPAY ==
[2020-12-21 06:13] VITALS: BMI 27.9
[2021-01-30 12:05] VITALS: BP 138/48; PULSE 72; RESP 16; TEMP 36.3; O2SAT 100; BMI 27.3
[2021-01-30] MEDS: Lactated Ringers 1,000 ML 100 ML IV (12:11)
[2021-01-30] MEDS: Cefazolin 2 GM in 0.9% Normal Saline 100 ML IV (13:44)
--- NOTE | 2021-01-30 13:49 | PCM.HP.STD ---
HPI - General HPI Narrative GAUDENCIO MONTESINOS, is a 60 M who presents for treatment of a distal left ureteral calculi he had shockwave lithotripsy which broke the stone up but a fragment is stuck now in the distal ureter is not been able to pass a fragment now for several weeks so we can proceed with ureteroscopy and laser of this broken fragment. COUNTS INCLUDE 234 BEDS AT THE [facility] Medical History (Updated 01/28/21 @ 14:55 by Hattie Klein) Alcohol use Arthritis Asthma Ex-smoker High cholesterol History of kidney stones Hypertension Seasonal allergies Home Medications amlodipine 10 mg PO DAILY 12/20/20 [History Last Taken 01/30/21 04:30] atorvastatin 20 mg PO DAILY 12/20/20 [History Last Taken 12/20/20] losartan 100 mg PO DAILY 12/20/20 [History Last Taken 01/30/21 04:30] ciprofloxacin HCl [Cipro] 500 mg PO BID #6 tab 01/30/21 [Rx Last Taken Unknown] oxycodone-acetaminophen 1 tab PO Q6H PRN 7 Days #10 tab 01/30/21 [Rx Last Taken Unknown] Allergy/AdvReac Type Severity Reaction Status Date / Time No Known Allergies Allergy Verified 01/30/21 12:04 Surgical History (Updated 01/28/21 @ 14:36 by Hattie Klein) History of ureter stent Social History (Updated 12/20/20 @ 20:[address] Johnny Rosario MD) household members: family housing: house Smoking Status: Former smoker alcohol intake: current alcohol intake frequency: holidays/special occasions only substance use type: does not use ROS Constitutional Constitutional: Denies chills, fever(s) or malaise Eyes Eyes: Denies blurry vision or change in vision ENT HEENT: Reports none Cardiovascular Cardiovascular: Denies chest pain or palpitations Respiratory/Chest Respiratory/Chest: Denies cough or shortness of breath with exertion Gastrointestinal Gastrointestinal: Denies abdominal pain, constipation or diarrhea Musculoskeletal Musculoskeletal: Denies back pain, joint stiffness or joint swelling Integumentary Integumentary: Denies dry skin, jaundice, lesions or rash Neurologic Neurologic: Denies confusion, syncope or weakness Psychiatric Psychiatric: Reports none; Denies anxiety or depression Endocrine Endocrinology: Denies excessive sweating, fatigue or flushing Hematologic/Lymphatic Hematologic/Lymphatic: Denies anemia, easy bleeding or easy bruising Vital Signs Vital Signs Vital Signs: 01/30/21 12:05 Temperature 97.4 F L Temperature Source Temporal Pulse Rate 72 Respiratory Rate 16 Respiratory Pattern Normal Blood Pressure 138/48 H Blood Pressure Mean 78 Blood Pressure Source Monitor Blood Pressure Position Sitting Blood Pressure Location Left Arm Pulse Ox 100 Oxygen Delivery Method Room Air Weight Weight: 86.6 kg Body Mass Index (BMI) 27.3 Physical Exam Const alert and oriented x3 General Appearance: cooperative HEENT normocephalic, head/scalp atraumatic, EAC's normal and TM's normal bilaterally Eyes PERRL and EOMs intact bilaterally Pupil: sluggish Neck no lymphadenopathy, supple and no JVD General: trachea midline Lymph Lymphatic: no lymphadenopathy noted, lymphedema and lymphadenopathy Resp normal respiratory effort, normal air movement and clear to auscultation bilaterally Cardio regular rate, regular rhythm and peripheral pulses 2+ throughout GI soft to palpation, non-tender and non-distended Extremity normal capillary refill and no clubbing, cyanosis or edema General Extremity: no tenderness to palpation of joints or extremities Skin no rashes or lesions noted General Skin Exam: turgor normal Lesions: no lesions Rashes: no rashes Neuro CN's II-XII intact bilaterally Speech: speech normal Motor Exam: strength 5/5 throughout; Negative for general weakness Psych thought process normal, cooperative and affect normal Appearance: appropriate Results Lab / Micro Data Micro: Microbiology 01/29/21 14:20 Interface Orders SARS-CoV-2 Antigen (Rapid) - Final Assessment & Plan Assessment/Plan (1) Left ureteral calculus: PLAN: Plan to proceed with left ureteroscopy laser of stone and stent placement.
--- NOTE | 2021-01-30 13:50 | PCM.DC ---
Discharge Instructions Diet Discharge Diet: No restrictions Activity Discharge Activity: Return to Normal Activity and May Not Drive (while taking narcotic pain medications.) Dressing / Incision Call your doctor if you observe: Fever of 101 or Higher Follow Up Care Please Follow Up With: Trav Nguyen MD When: Call [phone] for an appointment Test Results: Test results from this visit will be discussed in further detail at your follow-up appointment, if applicable. Discharge Plan Admission Primary Reason for Your Visit: kidney stone Attending Provider: Trav Nguyen Primary Care Provider: Prudence Davies Discharge Orders/Prescriptions Prescriptions: New oxycodone-acetaminophen 5-325 mg tablet 1 tab PO Q6H PRN (Reason: pain) 7 Days Qty: 10 RF: 0 ciprofloxacin HCl [Cipro] 500 mg tablet 500 mg PO BID Qty: 6 RF: 0 Continued atorvastatin 20 mg tablet 20 mg PO DAILY RF: 0 amlodipine 10 mg tablet 10 mg PO DAILY RF: 0 losartan 100 mg tablet 100 mg PO DAILY RF: 0 Referrals / Follow Up: Trav Nguyen MD [STAFF PHYSICIAN] - Prudence Davies MD [Primary Care Provider] - Disposition Disposition (needs filled in before D/C Order can be placed): Home, Self Care
--- NOTE | 2021-01-30 14:07 | PCM.OPRPT ---
Report of Operation Date of Procedure: 01/30/21 Pre-Operative Diagnosis: Left ureteral calculi Post-Operative Diagnosis: Same Surgery/Procedure Performed:: Cystoscopy, balloon dilation left ureter left ureteroscopy, diagnostic no stent. Description of Surgical Findings:: Patient was taken back to the operating room at the smooth induction of general anesthesia he was placed in dorsolithotomy position. Went into the bladder with a 21 Sammarinese rigid cystourethroscope cannulated the left ureteral orifice with a balloon dilator Pollick catheter performed a balloon dilation distal left ureter I then went up the ureter with a SlimLine ureteroscope no stone was seen so then I went in with a flexible ureteroscope I went all the way up to the kidney inspected the upper pole midpole lower pole the kidney and there was no stone where it worked my way down the ureter and there was no stone along the course of the ureter apparently this patient had passed a stone and had not noticed. When I saw him in the office the stone was visible on x-ray and he was having very minimal pain. At this point no stent was placed and I can see him back in 4 to 6 weeks for checkup in the office. Type of Anesthesia: General Drains: none Admit VTE Documentation VTE Present on Admission: No VTE Mechan Device Prophylaxis: SCD's
[2021-01-30 14:20] VITALS: BP 117/86; BP 138/48; PULSE 86; RESP 18; TEMP 36.3; O2SAT 99
[2021-01-30 14:29] VITALS: BP 112/71; BP 138/48; PULSE 68; RESP 18; O2SAT 96
[2021-01-30 14:45] VITALS: BP 133/84; BP 138/48; PULSE 68; RESP 18; TEMP 36.4; O2SAT 94
[2021-01-30 15:21] VITALS: BP 138/48
== END 2021-01-30 15:39 | disposition home or self-care (01) ==
LOC: SDC 11:48 → AC 11:48
PROVIDERS: PCP Internal Medicine; Referring Provider Urology; Visit Provider Urology
PROC: 0TJ98ZZ Inspection of Ureter, Via Natural or Artificial Opening Endoscopic (ICD-10-PCS; CPT 52352; principal; 2021-01-30 13:20)
DX: N20.1 Calculus of ureter (principal); M19.90 Unspecified osteoarthritis, unspecified site; J45.909 Unspecified asthma, uncomplicated; E78.00 Pure hypercholesterolemia, unspecified; I10 Essential (primary) hypertension; Z79.899 Other long term (current) drug therapy; Z87.891 Personal history of nicotine dependence
CPT/HCPCS: 52000; 76000; 87426; C9803; J7120; C1726; C1769; J2405

== ENCOUNTER → 2021-02-27 16:11 | Outpatient (CLI) | payer BC, SELFPAY ==
[2021-02-27 18:12] LABS: PSA,Total - Annual Screen 0.88 ng/mL (0.00-4.00)
== END ==
PROVIDERS: PCP Internal Medicine; Referring Provider Urology; Visit Provider Urology
DX: Z12.5 Encounter for screening for malignant neoplasm of prostate (principal)
CPT/HCPCS: 36415; 84153; G0103

== ENCOUNTER → 2024-10-23 | Outpatient (CLI) | payer BC, SELFPAY ==
[2024-10-25 12:08] LABS: PSA, Free 0.48 ng/mL; PSA, Free % 36.4 % (.)
== END | disposition home or self-care (01) ==
LOC: LAB 15:53
PROVIDERS: PCP Internal Medicine; Referring Provider Urology; Visit Provider Urology
DX: R97.20 Elevated prostate specific antigen [PSA] (principal)
CPT/HCPCS: 36415; 84153; 84154